=== PATIENT | female | born 1955 | race Caucasian/White ===

== ENCOUNTER → 2016-11-24 | Outpatient (CLI) | payer BC ==
[~2016-11-24] MED LIST: ACCUNEB SO1.25 MG/1 INH; ALBUTEROL2.5 MG/31 INH; ALENDRONATE SOD70 MG PO; ALLI60 MG PO; ASPIR 8181 MG PO; ASPIRIN325 PO; ATIVAN1 MG PO; BUDESONIDE0.25 MG/2 INH; CALCIUM 500 MG1 EACH PO; CELEXA20 MG PO; DIAZEPAM 10 MG10 M1 PO; DITROPAN XL15 MG PO; DUONEB 2.5-0.5 M3 ML INH; FLEXERIL PO; HYDROCHLOROTHIA25 M2 PO; HYDROCODONE-AP1 EAC6 PO; HYDROCODONE-APA1 TA1 PO; IBUPROFEN 400400 M2 PO; LEVOTHYROXINE0.2 M1 PO; LOPRESSOR25 PO; LOSARTAN POTAS100 MG PO; MULTI VITAMIN1 EACH PO; NEXIUM40 MG PO; NORCO 5-325 TA1 EACH PO; PREDNISONE 10 M10 MG PO; PULMICORT0.5 MG/2 M INH; TRAMADOL 50 MG50 MG PO; TYLENOL325 MG PO; VENTOLIN HFA 1818 GM INH; ZOCOR20 MG PO
== END ==
LOC: CAT 10:48 → RAD 10:48
DX: R06.02 Shortness of breath (principal); R91.8 Other nonspecific abnormal finding of lung field; J98.11 Atelectasis

== ENCOUNTER → 2016-11-27 | Outpatient (CLI) | payer BC | LOC: RAD 04:35 | DX: R06.02 Shortness of breath (principal) ==

== ENCOUNTER → 2016-12-25 | Outpatient (CLI) | payer BC ==
--- NOTE | ~2016-12-25 | SLE ---
[facility] [address] [place] [address] POLYSOMNOGRAPHY STUDY Name: ROSS PROCTOR Room #: REG [facility]..#: [id number] Admission: 12/25/16 Attend Phys: Beto Hester MD Discharge: Date of : 53 Report #: [id number] THIS REPORT FOR: //name// CC: Jamie Mullen MD This is a 61-year-old, height 5 feet 4 inches, weight 306 pounds, uses 2 liters of oxygen at night, usually goes to bed at 10:30, gets out of bed 10:00 to 11:00 a.m. Positive history of bedwetting, daytime somnolence. COMMENTS: No significant arrhythmia noted. Total sleep time 259 minutes. Sleep efficiency 74%. Sleep latency 26.5 minutes, REM latency 250 minutes. SLEEP STAGE: 1-3%, 2-68%, 3-21%, REM-8%. Central apnea 0, mixed apnea 0, obstructive apnea 0, hypopnea 37. Apnea-hypopnea index of 8.6 events per sleep hour. Non-REM 2.5, REM AHI 73.6 events per sleep hour. Supine 0, left lateral 0, right lateral 18 events per sleep hour. Periodic limb movement with arousal index 29 events per sleep hour. Low oxygen saturation 63%, spending 7.5% of recording time less than 90%. IMPRESSION: 1. Obstructive sleep apnea/hypopnea, G47.33 with a REM component. 2. No significant arrhythmia noted. 3. Periodic limb movement with arousal index 29 events per sleep hour. SUGGESTIONS: 1. In addition to specific therapy, the patient should be cautioned regarding driving or operating dangerous machinery unless fully alert. The patient should be cautioned regarding the use of respiratory depressants. 2. Oral appliance or appropriate surgery may be considered with appropriate followup. 3. A CPAP titration night is recommended starting the patient off of CPAP and then adding O2 if needed. 4. If signs and symptoms not improved with therapy, further evaluation is recommended. Please do not hesitate to contact me if I may be of further assistance. <ELECTRONICALLY SIGNED> By: Evelia Andersen MD 12/29/16 1950 1346 [id number] Evelia Andersen MD /nt
== END ==
LOC: SLEEPLAB 12-10 10:30
DX: G47.33 Obstructive sleep apnea (adult) (pediatric) (principal)

== ENCOUNTER → 2017-01-15 | Outpatient (CLI) | payer BC | LOC: SLEEPLAB 08:18 | DX: G47.33 Obstructive sleep apnea (adult) (pediatric) (principal) ==

== ENCOUNTER → 2017-03-13 | Outpatient (CLI) | payer BC | LOC: RAD 11:23 | DX: J18.9 Pneumonia, unspecified organism (principal); J45.909 Unspecified asthma, uncomplicated ==

== ENCOUNTER → 2018-01-14 | Outpatient (CLI) | payer OTHER ==
[2018-01-14 13:15] LABS: BE(vivo) 1.5 mmol/L (-2 to +3); HCO3 25.9 mmol/L (22.0-26.0); PCO2 39.8 mmHg (35.0-45.0); PO2 56.7 mmHg (80.0-100.0); pH 7.431 (7.360-7.450); sO2 90.4 % (92.0-98.0)
== END ==
LOC: RAD 12:34 → PUL 12:34
PROVIDERS: Internal Medicine Pulmonary Disease
DX: J96.11 Chronic respiratory failure with hypoxia (principal); J45.909 Unspecified asthma, uncomplicated

== ENCOUNTER → 2018-02-05 | Outpatient (CLI) | payer OTHER ==
[~2018-02-05] VITALS: Ht 162.6 cm; Wt 138.3 kg
[~2018-02-05] MED LIST changes: +BREO ELLIPTA 21 EACH INH; +CLARITIN10 MG PO; +COZAAR 50 MG TA50 M2 PO; +ELIQUIS5 MG PO; +LEVOTHYROXINE200 MC1 PO; +SYNTHROID150 MCG PO
--- NOTE | ~2018-02-05 | P ---
[facility] [place] [address] PROCEDURE REPORT Name: ROSS PROCTOR [id number] Admission: 02/05/18 Attend Phys: Enrrique Wagner Discharge: Date of : 53 Report #: [id number] THIS REPORT FOR: //name// CC: Enrrique Mccann DO DATE OF SERVICE: 02/05/2018 PROCEDURE PERFORMED: Colonoscopy. HISTORY OF PRESENT ILLNESS: The patient is a 62-year-old female who reports intermittent bright red blood per rectum. She denies any abdominal pain or anorectal pain, previous colonoscopy was in 2008. No family history of colon cancer. DESCRIPTION OF PROCEDURE: The risks and benefits of the procedure were explained to the patient. Those risks including but not limited to bleeding, perforation, the risk of sedation. She understood these risks and gave informed consent. Sedation was given using propofol per Anesthesia. Next, a digital rectal exam showed external hemorrhoids, otherwise normal. Next, using a standard Olympus colonoscope, the scope was placed in the patient's anus and advanced under direct vision to the cecum. The overall prep was good. Cecum and ileocecal valve were normal. The ascending, transverse and descending colon were normal. A few scattered diverticula were noted in the sigmoid colon, no evidence of inflammation, otherwise normal. The rectal mucosa was normal. On retroflexion, small to medium size internal hemorrhoid was noted. There was a small amount of blood near this area likely due to trauma from the scope. No significant bleeding. Close examination of the anal canal showed moderate external hemorrhoids, also somewhat friable, but again no active bleeding. No evidence of anal fissure. The rectal mucosa again was normal. There was no colitis. The scope was then withdrawn and the procedure terminated. The patient tolerated the procedure well. IMPRESSION: 1. Sigmoid diverticulosis. 2. Internal and external hemorrhoids, likely source of bright red blood per rectum. 3. Otherwise, normal colonoscopy. RECOMMENDATIONS: 1. High fiber diet. 2. Analpram t.i.d. p.r.n. 3. Repeat colonoscopy in 10 years. [facility] [address] [place] [address] PROCEDURE REPORT Name: ROSS PROCTOR OSCAR Room #: REG [facility] [place]ul.#: [id number] Admission: 02/05/18 Attend Phys: Enrrique Wagner Discharge: Date of : 53 Report #: [id number] Thank you for allowing me to participate in her care. <ELECTRONICALLY SIGNED> By: Enrrique Selby MD 02/12/18 1020 1026 2038 Enrrique Selby MD /nt
== END | disposition home or self-care (01) ==
LOC: GI 08:07
DX: K57.30 Diverticulosis of large intestine without perforation or abscess without bleeding (principal); K64.8 Other hemorrhoids; K64.4 Residual hemorrhoidal skin tags; F32.9 Major depressive disorder, single episode, unspecified; F41.9 Anxiety disorder, unspecified; J45.909 Unspecified asthma, uncomplicated; Z98.890 Other specified postprocedural states; G47.30 Sleep apnea, unspecified; I10 Essential (primary) hypertension; E78.5 Hyperlipidemia, unspecified; I48.91 Unspecified atrial fibrillation; M19.90 Unspecified osteoarthritis, unspecified site; K21.9 Gastro-esophageal reflux disease without esophagitis; Z90.710 Acquired absence of both cervix and uterus
CPT/HCPCS: 62110; 62900

== ENCOUNTER → 2018-05-06 | Outpatient (CLI) | payer OTHER ==
[~2018-05-06] VITALS: Ht 162.6 cm; Wt 135.5 kg
--- NOTE | ~2018-05-06 | 2DMMODE ---
[facility] [address] [place] [address] 2 D/M-MODE ECHOCARDIOGRAM Name: ROSS PROCTOR Room #: 150-5 ADM IN ..#: [id number] Admission: 05/06/18 Attend Phys: Sagar Michael Discharge: Date of : 53 Date of Service: 05/06/18 1437 Report #: [id number] THIS REPORT FOR: //name// APPROVED REPORT Study performed: 05/06/2018 13:21:14 EXAM: Comprehensive 2D, Doppler, and color-flow Echocardiogram Patient Location: In-Patient Room #: Pre op 3 Status: routine BSA: 2.32 HR: 91 bpm Other Information Study Quality: Adequate/Technically Difficult Technically limited study due to body habitus. Indications COPD Diabetes Pre op 2D Dimensions RVDd: 23.73 mm IVSd: 11.32 (7-11mm) LVOT Diam: 18.54 (18-24mm) LVDd: 49.20 mm PWd: 11.78 (7-11mm) Ascending Ao: 32.66 (22-36mm) LVDs: 32.04 (25-40mm) Aortic Root: 27.33 mm IVC: 16.00 mm Volumes Left Atrial Volume (Systole) Single Plane 4CH: 42.56 mL Single Plane 2CH: 54.48 mL LA ESV Index: 22.00 mL/m2 Aortic Valve AoV Peak Kurt.: 1.81 m/s AO Peak Gr.: 13.06 mmHg LVOT Max P.71 mmHg LVOT Max V: 1.19 m/s SURESH Vmax: 1.78 cm2 Mitral Valve [facility] [address] [place] [address] 2 D/M-MODE ECHOCARDIOGRAM Name: ROSS PROCTOR Room #: 150-5 ADM IN [facility].#: [id number] Admission: 05/06/18 Attend Phys: Sagar Michael Discharge: Date of : 53 Date of Service: 05/06/18 1437 Report #: [id number] E/A Ratio: 1.1 MV Decel. Time: 172.49 ms MV E Max Kurt.: 1.46 m/s MV A Kurt.: 1.34 m/s MV PHT: 50.02 ms IVRT: 80.74 ms Pulmonary Valve PV Peak Kurt.: 1.19 m/s PV Peak Gr.: 5.70 mmHg Pulmonary Vein P Vein S: 0.45 m/s P Vein D: 0.51 m/s P Vein S/D Ratio: 0.88 Tricuspid Valve RAP Estimate: 5.00 mmHg Left Ventricle The left ventricle is normal size. Borderline concentric left ventricular hypertrophy. The left ventricular systolic function is normal. The left ventricular ejection fraction is within the normal range. LVEF is 55-60%. Moderate diastolic dysfunction is present (pseudonormal filling). Right Ventricle The right ventricle is normal size. The right ventricular systolic function is normal. Atria The left atrium size is normal. The right atrium size is normal. Aortic Valve The aortic valve is not well visualized. No aortic regurgitation is present. There is no aortic valvular stenosis. Mitral Valve The mitral valve is normal in structure. Mild mitral regurgitation. No evidence of mitral valve stenosis. Tricuspid Valve The tricuspid valve is normal in structure. There is no tricuspid valve regurgitation noted. Unable to assess PA pressure. Pulmonic Valve [facility] [address] [place] [address] 2 D/M-MODE ECHOCARDIOGRAM Name: ROSS PROCTOR Room #: 150-5 ADM IN M.R.#: [id number] Admission: 05/06/18 Attend Phys: Sagar Michael Discharge: Date of : 53 Date of Service: 05/06/18 1437 Report #: [id number] Pulmonic valve is not well visualized. Great Vessels The aortic root is normal in size. IVC is normal in size and collapses >50% with inspiration. Pericardium There is no pericardial effusion. <Conclusion> The left ventricle is normal size. Borderline concentric left ventricular hypertrophy. The left ventricular systolic function is normal. Moderate diastolic dysfunction is present (pseudonormal filling). The right ventricle is normal size. The left atrium size is normal. There is no aortic valvular stenosis. Mild mitral regurgitation. There is no tricuspid valve regurgitation noted. <ELECTRONICALLY SIGNED> By: Sawyer Matthews MD 05/06/18 1437 1437 143 Sawyer Matthews MD /INF
[2018-05-06 12:02] VITALS: BP 149/83
== END ==
LOC: PRE 04-29 13:09 → LAB 05:00 → PRE 05:30 → TBA 05:30 → EDSTATUS 06:59 → PRE 09:46
DX: E66.01 Morbid (severe) obesity due to excess calories (principal); I34.0 Nonrheumatic mitral (valve) insufficiency; J44.9 Chronic obstructive pulmonary disease, unspecified; E11.9 Type 2 diabetes mellitus without complications

== ENCOUNTER 2018-09-13 15:24 | Inpatient (IN) | payer OTHER ==
[~2018-09-13] VITALS: Ht 160 cm; Wt 140.8 kg
[2018-09-13 16:14] VITALS: BP 150/80
[2018-09-13 16:38] LABS: HEMATOCRIT 31.5 % (37.0-47.0); HEMOGLOBIN 10.4 gm/dL (12.0-15.0); MCH 29.8 pg (26.0-34.0); MCV 90.4 fL (80.0-100.0); PLATELET COUNT 328 thou/uL (150-400); RBC 3.49 mil/uL (4.20-5.00); RDW 14.2 % (10.5-14.5); WBC 7.7 thou/uL (4.0-11.0)
[2018-09-13 16:46] LABS: CALCIUM 9.7 mg/dL (8.5-10.1); CREATININE 0.7 mg/dL (0.6-1.0); POTASSIUM 3.6 mmol/L (3.5-5.1)
[2018-09-13 18:41] LABS: URINE BILIRUBIN NEGATIVE (Negative); URINE BLOOD TRACE (Negative); URINE CLARITY CLEAR; URINE COLOR YELLOW; URINE GLUCOSE-RANDOM* NEGATIVE (Negative); URINE KETONES NEGATIVE (Negative); URINE LEUKOCYTES NEGATIVE (Negative); URINE NITRITE NEGATIVE (Negative); URINE PROTEIN (DIPSTICK) NEGATIVE (Negative); URINE SPECIFIC GRAVITY > 1.030 (1.005-1.035); URINE UROBILINOGEN 0.2 E.U./dl (0.2-1.0)
[2018-09-13 19:03] LABS: ABSOLUTE NEUTROPHILS 4.9 thou/uL (1.4-8.2)
[2018-09-13 19:41] VITALS: BP 159/90
[2018-09-13 23:48] VITALS: BP 144/60
[2018-09-14 03:57] VITALS: BP 144/66
[2018-09-14 04:22] LABS: CALCIUM 9.8 mg/dL (8.5-10.1); CREATININE 0.7 mg/dL (0.6-1.0); POTASSIUM 4.4 mmol/L (3.5-5.1)
[2018-09-14 08:20] VITALS: BP 159/85
[2018-09-14 14:38] VITALS: BP 147/70
[2018-09-14 20:07] VITALS: BP 141/60
[2018-09-15 20:05] VITALS: BP 154/63
[2018-09-16 03:06] LABS: ADENOVIRUS Negative (Negative); INFLUENZA A Negative (Negative); INFLUENZA B Negative (Negative); METAPNEUMOVIRUS Positive (Negative); PARAINFLUENZA 1 Negative (Negative); PARAINFLUENZA 2 Negative (Negative); PARAINFLUENZA 3 Negative (Negative); RHINOVIRUS Negative (Negative); RSV A Negative (Negative); RSV B Negative (Negative)
[2018-09-16 09:55] LABS: CREATININE 0.7 mg/dL (0.6-1.0); POTASSIUM 3.7 mmol/L (3.5-5.1)
[2018-09-16 19:50] VITALS: BP 161/81
[2018-09-17 07:25] VITALS: BP 171/81
[2018-09-17] MEDS ORDERED: LEVAQUIN 500 M500 M2 PO (10:53)
[2018-09-17] MEDS ORDERED: MUCINEX D TABL1 EAC1 PO (10:53)
[2018-09-17] MEDS ORDERED: PREDNISONE 20 M20 MG PO (10:53)
[2018-09-17 11:45] VITALS: BP 171/81
== END 2018-09-17 16:11 | disposition home or self-care (01) | DRG 189 ==
LOC: 3W 15:24 → SICU 09-14 14:14 → ENTRNSPT 09-17 14:31 → EDTRNSPTSTS 09-17 14:34 → SICU 09-17 16:11
PROVIDERS: Pediatrics; ADMIT Hospitalist
DX: J96.21 Acute and chronic respiratory failure with hypoxia (principal); J45.901 Unspecified asthma with (acute) exacerbation; I50.32 Chronic diastolic (congestive) heart failure; Z68.43 Body mass index [BMI] 50.0-59.9, adult; J44.0 Chronic obstructive pulmonary disease with (acute) lower respiratory infection; J20.9 Acute bronchitis, unspecified; M19.90 Unspecified osteoarthritis, unspecified site; K21.9 Gastro-esophageal reflux disease without esophagitis; E78.5 Hyperlipidemia, unspecified; I11.0 Hypertensive heart disease with heart failure; I48.91 Unspecified atrial fibrillation; F32.9 Major depressive disorder, single episode, unspecified; E03.9 Hypothyroidism, unspecified; G47.33 Obstructive sleep apnea (adult) (pediatric); E66.01 Morbid (severe) obesity due to excess calories; Z88.8 Allergy status to other drugs, medicaments and biological substances; Z90.710 Acquired absence of both cervix and uterus; Z79.899 Other long term (current) drug therapy
CPT/HCPCS: 10779; 15002

== ENCOUNTER → 2021-07-29 | Outpatient (CLI) | payer OTHER ==
[~2021-07-29] MED LIST changes: +LEVAQUIN 500 M500 M2 PO; +MUCINEX D TABL1 EAC1 PO; +PREDNISONE 20 M20 MG PO
== END ==
LOC: RAD 12:30
PROVIDERS: ATTEND Pediatrics
DX: J98.4 Other disorders of lung (principal); R06.02 Shortness of breath